=== PATIENT | female | born 1995 | race Caucasian/White ===

== ENCOUNTER 2023-02-01 16:50 | Outpatient (OUT) | payer OTHER, SELFPAY ==
--- NOTE | 2023-02-01 16:58 | XR_ITS ---
[address] [address] Patient Name: NICOLE BREEN MRN: [id number] date: 1995 Sex: F Assigned Patient Location: LAB Current Patient Location: [facility] Accession/Order Number: [id number] Exam Date: 02/01/2023 17:00 Report Date: 02/01/2023 17:21 At the request of: STEFANIE CASAREZ Procedure: XR finger LT min 2V PROCEDURE: XR finger LT min 2V COMPARISON: None. HISTORY: PAIN IN LEFT HAND M79.642 FINDINGS: BONES: 1.5 mm calcific density identified along the distal radial head of the fourth metacarpal with minimal displacement but no distraction. No additional fracture. No dislocation.. SOFT TISSUES:Negative. No visible soft tissue swelling. EFFUSION:None visible. OTHER: Negative. IMPRESSION: 1.7 mm fracture medial head of the fourth metacarpal Electronically authenticated by: MICHELL SHAVER Date: 02/01/2023 17:21
== END 2023-02-01 16:51 | disposition home or self-care (01) ==
LOC: LAB 16:55 → RAD 17:21
PROVIDERS: PCP Nurse Practitioner Family; Visit Provider Nurse Practitioner Family
DX: S62.395A Other fracture of fourth metacarpal bone, left hand, initial encounter for closed fracture (principal); M79.642 Pain in left hand
CPT/HCPCS: 73140